=== PATIENT | female | born 1990 | race Caucasian/White ===

== ENCOUNTER 2024-06-05 16:05 | Emergency (ER) | payer MEDICAID, OTHER ==
[~2024-06-05] VITALS: Ht 157.5 cm; Wt 93.0 kg
[2024-06-05 16:12] VITALS: TEMP 97.8
[2024-06-05] MEDS: DOXYCYCLINE HYCLATE 100 MG TABLET PO ONE (17:38)
[2024-06-05] MEDS: CEPHALEXIN MONOHYDRATE 500 MG CAPSULE PO ONE (17:39)
[2024-06-05] MEDS: LIDOCAINE 1% 10 ML VIAL SQ ONE (17:39)
[2024-06-05 20:30] VITALS: BP 125/80; PULSE 80; RESP 18; O2SAT 98
[2024-06-05] MEDS ORDERED: HYDR-4062 PO (21:05)
[2024-06-05] MEDS ORDERED: IBUP-1554 PO (21:05)
[2024-06-05] MEDS ORDERED: CEPH-558 PO (21:05)
[2024-06-05] MEDS ORDERED: DOXY-354 PO (21:05)
== END 2024-06-05 21:11 | disposition home or self-care (01) ==
LOC: EMS 16:08
DX: L05.01 Pilonidal cyst with abscess (principal); E11.65 Type 2 diabetes mellitus with hyperglycemia
CPT/HCPCS: 10080; 99283; 82962; J3490

== ENCOUNTER 2024-06-08 09:06 | Emergency (ER) | payer MEDICAID, OTHER ==
[~2024-06-08] VITALS: Ht 157.5 cm; Wt 95.5 kg
[~2024-06-08 09:06] MED LIST: CEPH-558 PO; DOXY-354 PO; HYDR-4062 PO; IBUP-1554 PO
[2024-06-08 09:09] VITALS: TEMP 98.2
[2024-06-08] MEDS ORDERED: EMPA10TA3 PO (09:11)
[2024-06-08] MEDS ORDERED: LEVO25TA9 PO (09:11)
[2024-06-08 09:31] LABS: GLUCOMETER DEV NAME(LOC) ERT.6; GLUCOSE,POINT OF CARE 312 MG/DL (70-110)
[2024-06-08 09:58] VITALS: BP 131/81; PULSE 79; RESP 18; O2SAT 98
== END 2024-06-08 09:58 | disposition home or self-care (01) ==
LOC: EMS 09:08
DX: L05.01 Pilonidal cyst with abscess (principal); E11.9 Type 2 diabetes mellitus without complications; E03.9 Hypothyroidism, unspecified; Z48.817 Encounter for surgical aftercare following surgery on the skin and subcutaneous tissue
CPT/HCPCS: 82962; 99282